=== PATIENT | male | born 1995 | race Caucasian/White ===

== ENCOUNTER 2019-01-29 16:10 | Outpatient (CLI) ==
--- NOTE | 2019-01-30 08:25 | DI ---
EXAM: CHEST FRONTAL AND LATERAL VIEWS HISTORY: Cough, fever. COMPARISON: 01/27/2011 FINDINGS: Heart size and mediastinal contour remain within normal limits. No acute infiltrates. Normal vascularity with no pleural fluid or pneumothorax. The bony thorax has no acute finding. IMPRESSION: No acute process.
== END 2019-01-29 16:11 | disposition home or self-care (01) ==
LOC: RAD 16:10
PROVIDERS: ATTEND Family Medicine
DX: R50.9 Fever, unspecified (principal); R05 Cough